=== PATIENT | female | born 1980 | race African-American/Black ===

== ENCOUNTER 2023-05-21 22:59 | Emergency (ER) | payer MEDICAID, OTHER ==
[~2023-05-21] VITALS: Ht 170.2 cm; Wt 93.0 kg
[~2023-05-21 22:59] MED LIST: OFLO5DRO4 EACH EAR; POLY10DR EACHEYE
[2023-05-21 23:27] VITALS: O2SAT 100
[2023-05-22] MEDS ORDERED: CLIN-194 MT (01:43)
[2023-05-22 02:20] VITALS: BP 138/69; PULSE 76; RESP 18; TEMP 98.8
== END 2023-05-22 02:22 | disposition home or self-care (01) ==
LOC: ER 22:59
DX: L03.213 Periorbital cellulitis (principal); Z88.0 Allergy status to penicillin
CPT/HCPCS: 99281; 99283

== ENCOUNTER 2023-06-24 09:24 | Emergency (ER) | payer MEDICAID, OTHER ==
[~2023-06-24] VITALS: Ht 170.2 cm; Wt 103.0 kg
[~2023-06-24 09:24] MED LIST changes: +CLIN-194 MT
[2023-06-24 09:39] VITALS: TEMP 98.6; O2SAT 100
[2023-06-24] MEDS: ACETAMINOPHEN 325MG TABLET PO ONE (11:00)
[2023-06-24 11:10] VITALS: BP 139/86; PULSE 74; RESP 16
== END 2023-06-24 12:10 | disposition home or self-care (01) ==
LOC: ER 09:24
DX: S90.122A Contusion of left lesser toe(s) without damage to nail, initial encounter (principal); Z88.0 Allergy status to penicillin; X58.XXXA Exposure to other specified factors, initial encounter; Y93.89 Activity, other specified; Y92.89 Other specified places as the place of occurrence of the external cause; Y99.8 Other external cause status
CPT/HCPCS: 73630; 99283

== ENCOUNTER 2023-07-18 08:39 | Emergency (ER) | payer MEDICAID ==
[~2023-07-18] VITALS: Ht 170.2 cm; Wt 99.8 kg
[2023-07-18 08:53] VITALS: BP 138/83; PULSE 77; RESP 16; TEMP 98; O2SAT 100
[2023-07-18] MEDS ORDERED: IBUP-1525 MT (10:05)
[2023-07-18] MEDS ORDERED: TOPUD MT (10:05)
[2023-07-18] MEDS: ACETAMINOPHEN 325MG TABLET PO ONE (10:15)
[2023-07-18] MEDS: IBUPROFEN 800MG TABLET PO ONE (10:15)
== END 2023-07-18 10:22 | disposition home or self-care (01) ==
LOC: ER 08:39
DX: M25.561 Pain in right knee (principal); Z88.0 Allergy status to penicillin
CPT/HCPCS: 73564; 81025; 99283

== ENCOUNTER 2024-09-09 21:24 | Emergency (ER) | payer MEDICAID ==
[~2024-09-09] VITALS: Ht 170.2 cm; Wt 100.0 kg
[~2024-09-09 21:24] MED LIST changes: +IBUP-1525 MT; +TOPUD MT
[2024-09-09 21:30] VITALS: O2SAT 100
[2024-09-10 00:50] VITALS: TEMP 36.8; O2SAT 100
[2024-09-10 00:53] VITALS: BP 117/78; PULSE 80; RESP 16
[2024-09-10] MEDS: IBUPROFEN 600MG TABLET PO ONE (00:53)
[2024-09-10] MEDS ORDERED: IBUP-2029 MT (01:04)
[2024-09-10] MEDS ORDERED: METH-653 MT (01:04)
== END 2024-09-10 01:34 | disposition home or self-care (01) ==
LOC: ER 21:24
DX: S16.1XXA Strain of muscle, fascia and tendon at neck level, initial encounter (principal); S09.8XXA Other specified injuries of head, initial encounter; J45.909 Unspecified asthma, uncomplicated; Z79.1 Long term (current) use of non-steroidal anti-inflammatories (NSAID); Z88.0 Allergy status to penicillin; Z79.899 Other long term (current) drug therapy; W22.09XA Striking against other stationary object, initial encounter; Y93.89 Activity, other specified; Y92.410 Unspecified street and highway as the place of occurrence of the external cause; Y99.8 Other external cause status
CPT/HCPCS: 71045; 72040; 73030; 99284